=== PATIENT | male | born 1950 | race Caucasian/White ===

== ENCOUNTER 2017-12-22 05:22 | Day surgery (SDC) | payer OTHER ==
[~2017-12-22] VITALS: Ht 172.7 cm; Wt 86.2 kg
[~2017-12-22 05:22] MED LIST: AMARYL1 MG PO; ASPIR 8181 M1 PO; GLUCOPHAGE1000 MG PO; LIPITOR20 MG PO; LOPRESSOR25 MG PO; MEN'S MULTI-VI1 EACH PO; OMEPRAZOLE40 M1 PO; VITAMIN D400 UNIT PO; ZESTRIL2.5 MG PO
[2017-12-22 05:59] VITALS: BP 156/72
[2017-12-22] MEDS ORDERED: PERCOCET 5/31 TABLET PO (13:30)
[2017-12-22 14:27] VITALS: BP 136/71
[2017-12-22 15:16] VITALS: BP 146/70
== END 2017-12-22 15:16 | disposition home or self-care (01) ==
LOC: SDC 05:22
PROVIDERS: Surgery
PROC: 0YU60JZ Supplement Left Inguinal Region with Synthetic Substitute, Open Approach (ICD-10-PCS; principal; 2017-12-22)
DX: K40.90 Unilateral inguinal hernia, without obstruction or gangrene, not specified as recurrent (principal); D17.6 Benign lipomatous neoplasm of spermatic cord; C92.01 Acute myeloblastic leukemia, in remission; E11.9 Type 2 diabetes mellitus without complications; I10 Essential (primary) hypertension; Q78.0 Osteogenesis imperfecta; Z87.11 Personal history of peptic ulcer disease; Z79.82 Long term (current) use of aspirin; Z79.84 Long term (current) use of oral hypoglycemic drugs
CPT/HCPCS: 82948; C1781; J0131; J0330; J0690; J1100; J1170; J2250; J2405; J3010